=== PATIENT | female | born 1960 | race American Indian/Alaskan Native ===

== ENCOUNTER 2017-09-05 19:16 | Emergency (ER) | payer MEDICARE ==
[2017-09-05 19:36] VITALS: BP 174/117
--- NOTE | 2017-09-05 21:14 | Emergency Department Report ---
ED Seizure HPI - General Chief Complaint: Seizure Stated Complaint: SEIZURE Time Seen by Provider: 09/05/17 21:00 Source: patient (Initially history from triage was from patient and family. I entered the room around 21:00 and no one was in the room. I recheck again around 21:13 and no one was still in the room. I checked again at 21:51 and no one was in room.) Mode of arrival: Ambulatory Limitations: No Limitations - Related Data Previous Rx's Medication Instructions Recorded Last Taken Type Aspirin EC [Aspirin Enteric Coated 81 mg PO QDAY #30 tablet. 06/30/17 Unknown Rx TAB] Azithromycin [Zithromax TAB] 500 mg PO QDAY #3 tablet 06/30/17 Unknown Rx Metoprolol [Lopressor TAB] 50 mg PO BID #60 tablet 06/30/17 Unknown Rx amLODIPine [Norvasc] 10 mg PO QDAY #30 tablet 06/30/17 Unknown Rx Allergies Allergy/AdvReac Type Severity Reaction Status Date / Time No Known Allergies Allergy Verified 06/24/17 13:44 ED Review of Systems ROS: Stated complaint: SEIZURE Other details as noted in HPI ED Past Medical Hx - Past Medical History Hx Hypertension: Yes Hx Congestive Heart Failure: No Hx Diabetes: Yes Hx Psychiatric Treatment: Yes (bipolar) Hx Asthma: No Hx COPD: No - Surgical History Additional Surgical History: unknown - Social History Smoking Status: Unknown if ever smoked - Medications Home Medications: Home Medications Medication Instructions Recorded Confirmed Last Taken Type Aspirin EC [Aspirin Enteric Coated 81 mg PO QDAY #30 tablet. 06/30/17 Unknown Rx TAB] Azithromycin [Zithromax TAB] 500 mg PO QDAY #3 tablet 06/30/17 Unknown Rx Metoprolol [Lopressor TAB] 50 mg PO BID #60 tablet 06/30/17 Unknown Rx amLODIPine [Norvasc] 10 mg PO QDAY #30 tablet 06/30/17 Unknown Rx ED Physical Exam - General Limitations: No Limitations ED Course Vital Signs 09/05/17 19:33 Temperature 98.8 F Pulse Rate 101 H Blood Pressure 174/117 O2 Sat by Pulse 100 Oximetry ED Medical Decision Making - Medical Decision Making Patient not seen as they had eloped before I ever saw them. Critical care attestation.: If time is entered above; I have spent that time in minutes in the direct care of this critically ill patient, excluding procedure time. ED Disposition Clinical Impression: Seizure Disposition: Z- ELOPED Is pt being admited?: No Condition: Stable
== END 2017-09-05 22:25 | disposition left against medical advice (07) ==
LOC: ED 19:16
DX: R56.9 Unspecified convulsions (principal); I10 Essential (primary) hypertension; E11.9 Type 2 diabetes mellitus without complications; F31.9 Bipolar disorder, unspecified
CPT/HCPCS: 99281